=== PATIENT | male | born 1955 | race Caucasian/White ===

== ENCOUNTER 2017-04-27 12:26 | Inpatient (IN) ==
--- NOTE | 2017-04-26 16:17 | Discharge Summary ---
<Connie Murray E - Last Filed: 04/26/17 16:15> Date of Encounter: 04/26/17 - Discharge Diagnosis (1) Arthritis of left knee Priority: Primary Status: Chronic (2) Smoking Priority: Secondary Status: Chronic (3) History of DVT (deep vein thrombosis) Priority: Secondary Status: Chronic (4) BMI 37.0-37.9, adult Priority: Secondary Status: Chronic - Discharge Medications Prescriptions: HYDROcodone/Acet 5/325 mg [[place] 5-325 mg] 1 - 2 tab PO Q6H PRN #40 tab PRN Reason: Pain Home Medications: Aspirin Enteric Coated [Aspirin EC] 325 mg PO DAILY #21 tablet. 04/26/17 [Rx] Aspirin [Lo-Dose Aspirin EC] 81 mg PO DAILY 04/27/17 [History] HYDROcodone/Acet 5/325 mg [[place] 5-325 mg] 1 - 2 tab PO Q6H PRN #40 tab [Rx] Allergies/Adverse Reactions: Allergies No Known Allergies Allergy (Verified 04/27/17 13:43) Primary care physician: Herson Rivera MD - Patient Status Disposition: Home, Self-Care Condition: Good - Discharge Instructions Follow Up With: Herson Rivera MD [Primary Care Provider] - Peyman Enrique MD [Partnered Physician] - 05/07/17 3:00 pm Additional Instructions: Discharge Instructions: Total Knee Replacement Please call [facility] ([phone]), your Primary Care Physician, or report to the Emergency Room if you have any of the following symptoms: Nausea, vomiting, fever greater that 101.5, swelling, chest pain, shortness of breath, increased pain/redness/drainage/odor for your incision site, numbness/ tingling, or any other concerning symptoms. ACTIVITY:Weight-bearing as tolerated. You may progress off support (crutches or walker) as tolerated. MEDICATIONS: Upon discharge resume your home medications. Take all the medications as prescribed. Take a stool softener if taking narcotic pain medications. Stool softeners are only effective if you drink enough fluids. Drink 6-8 glass of water or fluids a day, unless this is not allowed for another health problem. Despite using stool softeners, if you haven't had a bowel movement in 3 days, please switch to a gentle laxative. Gentle laxatives are sold over the counter. You should have a bowel movement within 24 hours, if not call the office. You will be discharged from the hospital with a prescription for pain medication. You are encouraged to decrease the use of narcotic pain medication as tolerated. Should you require a refill, please call the office. [facility] prescribes narcotic pain medication for only 4-6 weeks after surgery. If you require pain medication beyond this time period, you may be referred to your Primary Care Physician or to the Pain Clinic for further evaluation. Plan ahead for refills on pain medication as many narcotics either need to be picked up at the office or mailed. It is best to call 48-72 hours in advance of needing a prescription refill so you don't run out of medication. To help control the post-operative pain, you may take NSAIDs (Aleve,Advil, Motrin, Ibuprofen, Naprosyn) or Tylenol as prescribed on the bottle in addition to the pain medication. ANTICOAGULATION (blood thinners): Continue your Aspirin, Lovenox or Coumadin as prescribed to help prevent a blood clot in the leg or in the lungs. As long as your incision remains dry and you tolerate the NSAIDs (Aleve, Advil, Motrin, ibuprofen, naprosyn), it is OK to use the NSAIDS while you are taking your anticoagulation medication. Should your incision start to drain, stop the NSAID and contact our office. Common symptoms of blood clot in the legs include: localized pain, swelling, calf tenderness, redness or discoloration of the skin. Blood clot in the lung symptoms include: shortness of breath, rapid pulse, sweating, and chest pain that worsens with deep breathing, coughing up blood, lightheadedness, feelings of anxiety. If you experience any of these symptoms notify your physician immediately, go to the emergency room, or if having trouble breathing, call 911. WOUND CARE: Leave the dressing on for 7 to 10days. You may change the dressing if it becomes saturated greater than 50%. Do not get the dressing wet at anytime. Wash your hands with antibacterial soap, rinse and dry prior to any wound care. If you have ned the visiting nurse or rehab facility can remove the stapes 10-14 days after surgery and place steri-strips across the wound. Leave the steri-strips in place until they fall off on their won. You may let water from the shower run on top of the steri-strips. If you do not have a visiting nurse or rehab facility, you will need to return to the office at 10-14 days for the ned to be removed. If you have itching or redness around the dressing call the office. FOLLOW-UP: Please follow up with your surgeon in the orthopedic clinic in 4 weeks from the day of surgery. If you have ned that need to be removed, you will need to come back to the office in 10-14 days from the day of surgery. - Hospital Course Hospital course: Mr. Castro is a 62 year old male - Time Spent with Patient Total time spent providing and/or coordinating discharge services: - VTE Documentation of Mechanical Device: Venous foot pump, device <Anabel Smallwood - Last Filed: 04/28/17 12:58> Date of Encounter: 04/28/17 Time of Encounter: 13:00 - Discharge Diagnosis (1) Status post total knee replacement, left Priority: Primary Status: Acute Labs on day of discharge: Labs from last 24 hours 04/28/17 04/28/17 04/27/17 05:18 05:18 16:23 Hgb 11.7 L D 14.0 Hct 34.4 L 40.4 Sodium 137 Potassium 4.6 H Chloride 107 Carbon Dioxide 25 BUN 12 Creatinine 0.85 Est GFR ( Amer) > 60 Est GFR (Non-Af Amer) > 60 BUN/Creatinine Ratio 14 Glucose 125 H Calculated Osmolality 285 Calcium 8.4 L - Impressions ITS Impressions Knee X-Ray 04/27/17 01:00 IMPRESSION: Total knee arthropasty without acute hardware complication. D/ / Skinny Song MD / Skinny Song MD Interpreting Provider: Skinny Song MD Date of admission: 04/27/17 17:41 Primary care physician: Herson Rivera MD Consults: 04/27/17 17:18 Consult to Occupational Therapy [CONS] Routine Comment: Evaluate, develop and implement POC Reason for Consult: post knee surgery Consult to Orthopedic Navigator [CONS] [CONS] Routine Consult to Physical Therapy [CONS] Routine Comment: Evaluate, develop and impliment POC Reason for Consult: post knee surgery Consult to Heat Curer [CONS] Routine Reason for SW Consult: post op joint replacement RT Post Op Consult [CONS] Routine - Hospital Course Hospital course: Mr. Castro is a 62 year old male - Time Spent with Patient Total time spent providing and/or coordinating discharge services: <Peyman Enrique - Last Filed: 04/29/17 09:50> Date of Encounter: 04/29/17 - Discharge Diagnosis (1) Arthritis of left knee Priority: Primary Status: Chronic (2) Smoking Priority: Secondary Status: Chronic (3) History of DVT (deep vein thrombosis) Priority: Secondary Status: Chronic (4) Acute blood loss anemia Priority: Primary Status: Acute (5) Status post total knee replacement, left Priority: Primary Status: Acute (6) Obesity (BMI 35.0-39.9 without comorbidity) Priority: Secondary Status: Chronic Primary care physician: Herson Rivera MD - Hospital Course Hospital course: Mr. Castro is a 62 year old male - Time Spent with Patient Total time spent providing and/or coordinating discharge services:
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
[2017-04-27] MEDS ORDERED: CeFAZolin Pre 2,000 MG/100 ML 2,000 MG/100 ML BAG IVPB ONE (12:48)
[2017-04-27] MEDS ORDERED: Albuterol 2.5 MG/3 ML NEBULIZER IH ONE (12:48)
[2017-04-27] MEDS ORDERED: Lidocaine -MPF 1% 2 ML VIAL ID ONE (12:48)
[2017-04-27] MEDS ORDERED: Ringers Solution, Lactated 1,000 ML IVC SCH ×2 (13:00→17:18)
--- NOTE | 2017-04-27 13:12 | History & Physical Report ---
Date of Encounter: 04/27/17 Time of Encounter: 13:11 24 Hour HP Update - Instructions Instructions: If the History and Physical is less than 30 days old and was completed prior to A.M. admission and or procedure and has NOT been updated on calendar day of procedure please complete this update prior to performing procedure. - Update Patient reports changes in Medical Condition: No Changes in examination, assessment, or condition: No Changes in Medication: No Preop tests/diagnostics Reviewed: Yes Surgery Remains Indicated: Yes Consent for Planned Operative Procedure(s) Verified: Yes - Pre-Operative Checklist Preoperative Checklist Indicated: No Prophylactic Antibiotic Ordered: Yes Is VTE Prophylaxis Indicated?: Yes
--- NOTE | 2017-04-27 13:20 | Anesthesia Evaluation PreOp ---
Date of Encounter: 04/27/17 Time of Encounter: 13:13 - Past History Planned Operation: Left Total Knee Arthroplasty Anesthesia History: Past Anesthesia Alcohol Use: heavy, recent Drug use: none Medications and Allergies Naproxen [EC-Naprosyn] 375 mg PO BID PRN 01/08/17 [History] Aspirin Enteric Coated [Aspirin EC] 325 mg PO DAILY #21 tablet. 04/26/17 [Rx] OxyCODONE Immed Rel [Roxicodone 5 MG] 5 - 10 mg PO Q6HR PRN #40 tablet 04/26/17 [Rx] Allergies No Known Allergies Allergy (Verified 01/08/17 10:44) - Meds/Allergy Pre-op Review Medications Reviewed: Yes Allergies Reviewed: Yes Beta Blockers on Current Med List: No Anesthesia Results - Labs Laboratory Tests 04/20/17 04/20/17 04/20/17 15:40 15:40 15:40 WBC 6.8 Hgb 16.5 Hct 48.0 Plt Count 170 PT 9.3 L INR 0.9 APTT 26.0 Sodium 141 Potassium 4.8 H BUN 6 L Creatinine 1.03 Anesthesia Exam O2 Sat Height 1.78 m Height 1.78 m Height 1.78 m Weight 119.748 kg Weight 119.748 kg Weight 119.748 kg O2 Sat by Pulse Oximetry 94 O2 Sat by Pulse Oximetry 94 Vital Signs Temp Pulse Resp BP Pulse Ox 99.3 F 87 18 129/88 94 04/27/17 12:45 04/27/17 12:45 04/27/17 12:45 04/27/17 12:45 04/27/17 12:45 Height: 5'10'' Weight: 264 lbs NPO (# of Hours): 8 Pain Scale: 0 Pain Scale Used: Numeric (1 - 10)
[2017-04-27] MEDS ORDERED: Acetaminophen IV 1,000 MG/100 ML INFUS..BTL IVPB ONE (13:25)
[2017-04-27] MEDS ORDERED: Gabapentin 300 MG CAPSULE PO STA (13:25)
[2017-04-27] MEDS ORDERED: *HR* FentaNYL (PF) 100 MCG/2 ML VIAL ONE (13:30)
[2017-04-27] MEDS ORDERED: Lidocaine -MPF 2% 2 ML VIAL ONE (13:30)
[2017-04-27] MEDS ORDERED: *HR* Propofol 200 MG/20 ML VIAL IVP ONE ×2 (13:30→13:36)
[2017-04-27] MEDS ORDERED: *HR* Midazolam HCl 2 MG/2 ML VIAL ONE (13:30)
[2017-04-27] MEDS ORDERED: *HR* Meperidine 25 MG/ML SYRINGE IVP PRN (13:47)
[2017-04-27] MEDS ORDERED: *HR* Promethazine 25 MG/ML VIAL IVP PRN (13:47)
[2017-04-27] MEDS ORDERED: ROPIVACAINE HCL/PF 0.5% 30 ML VIAL ONE (14:20)
[2017-04-27] MEDS ORDERED: Bupivacaine/Clonidine Syringe 1 EACH SYRINGE ONE (14:21)
[2017-04-27] MEDS ORDERED: EPHEDrine 50 MG/ML VIAL ONE (15:02)
[2017-04-27] MEDS ORDERED: *HR* HYDROmorphone 2 MG/ML SYRINGE ONE (15:14)
--- NOTE | 2017-04-27 15:15 | Anesthesia Procedures ---
Date of Encounter: 04/27/17 Time of Encounter: 14:30 Procedures: Anesthesia - Nerve Block Procedure Date: 04/27/17 Time: 14:30 Checklist: Correct Patient Identifier, Correct procedure, History checked Correct side: Left Blood Thinner: No Monitor Applied: EKG, BP, Pulse Oximetry Supplemental Oxygen via Nasal Cannula (L/min): 2 Sedation: Versed (mg): 2 Sedation: Fentanyl (mcg): 100 Indication: Post Op Analgesia Pre-op Neuro Deficits: No Block Type: Femoral, Other (iPACK) Catheter placed: No Sterile Technique: Yes Ultrasound used: Yes Anatomy identified: Yes Visual spread of Local: Yes Neuro Stimulation: Yes Nerve Stimulator Range: 0.2 - 0.4 mA Blood on Needle Aspiration: No Smooth Injection of Local: Yes Pain with Injection of Local: No Prep: Chlorhexadine Needle: 22 x 50 mm Stimuplex, 21 x 100 mm Stimuplex Local: 0.25% Bupivicaine w/Clonidine 20 mcg/cc (iPack), Ropivacaine (0.5% with 8 of decardon) Volume (cc): 60 Number of Attempts: 1 Complications: None/effective block Vitals: vss
--- NOTE | 2017-04-27 15:35 | Orthopedic Operative Note ---
Date of procedure: 04/27/17 Pre-op diagnosis: Left knee arthritis Post-op diagnosis: same Procedure: Procedure: Left Total knee replacement Estimated blood loss: 200 cc Hardware: Metal and polyethylene replacement. Arthrex Femur: 8 Tibia: 8 PS insert: 12 Patella: 40 Exam Under anesthesia: Severe varus alignment loss of full extension 20 degrees flexion and 90 degrees Procedural Notes: Grade 4 arthritic changes medial compartment and patellofemoral joint. Operative procedure: The patient was brought to the operating room and placed on the operating room table. After general anesthesia was administered the operative knee was examined. Findings were noted in the exam under anesthesia. The operative extremity was prepped and draped in sterile surgical fashion. The patient received IV antibiotics prior to skin incision. A standard midline incision was made centered over the patella. The incision was made through the skin and subcutaneous tissue. A medial parapatellar tendon approach was performed. Care was taken to preserve tissue along the medial aspect of the patella. And to protect the patella tendon. The deep MCL was released off the medial tibia. The infra patella fat pad was excised. Knee was brought into flexion. Patient noted to have grade 4 arthritic changes medial compartment and patellofemoral joint. The entry hole was made for the intramedullary femoral guide. The guide was seated in 6 degrees of valgus. Anterior cut was made followed by the distal cut. The ACL the PCL the medial and the lateral menisci were excised. The tibia was subluxed forward. The entry hole was made for the intramedullary tibial guide. Guide was seated to resect 2 mm off the more abnormal side. The knee was brought into flexion the distal femur was sized to an 8. The femoral guide was seated, the anterior cut was made followed by the posterior condylar cut, followed by the chamfer cuts. The finishing guide was seated the box cut was made and the lug holes were drilled. The tibia was sized, to an 8 the tibial tray was seated and prepared with the large drill followed by the fin cutter. Trial reduction revealed full extension no varus valgus instability with the appropriate 12 PS Gita. The patella was everted and cut was made at the level of the insertion of the quadriceps and patella tendon. The patella was sized to a 40 the guide was seated and the lug holes are drilled. Trial reduction revealed excellent patella tracking. All trial components were removed all bony surfaces were irrigated. The tibia was cemented first followed by the femur. The 12 PS Gita was seated and the knee was brought into full extension. The patella was cemented and held in place with the patellar holding clamp. After the cement had hardened, the knee sat for 2 minutes with a Betadine saline solution. The knee was then irrigated out with 2 L of pulse irrigation. The PA close the knee. The extensor mechanism was closed with #2 FiberWire suture and #2 PDS suture. The subcutaneous tissue was then irrigated and closed deep with #1 PDS suture superficially with 0 PDS suture and skin was closed with skin ned. The patient was then placed in a sterile dressing and a postoperative brace extubated and transferred to recovery room in stable condition. Anesthesia: BOOGIE Surgeon: Peyman Enrique Mason Tender Restoration Labor: Anabel Smallwood Disposition: PACU
[2017-04-27] MEDS ORDERED: Ketorolac 30 MG/ML VIAL ONE (15:42)
[2017-04-27] MEDS ORDERED: Ondansetron 4 MG/2 ML VIAL ONE (15:43)
[2017-04-27] MEDS ORDERED: Dexamethasone 4 MG/ML VIAL ONE (15:44)
[2017-04-27] MEDS: *HR* HYDROmorphone (PF) 1 MG/ML SYRINGE IVP PRN ×4 (16:13→16:38)
[2017-04-27 16:49] LABS: Hematocrit 40.4 % (37.5-50.1)
--- NOTE | 2017-04-27 16:59 | Anesthesia Evaluation Post Op ---
Date of Encounter: 04/27/17 Time of Encounter: 16:58 - Vital Signs Vital Signs: vss - Lungs Lungs: Clear Ascult./Percussion - Airway Airway: Non-obstructed (continous pulse ox ordered.) - Cardiovascular Baseline Rhythm - Mental Status Mental Status: Asleep with brisk response to light stimulation - Pain Pain Scale used: Tom-Castro (Faces) (no apparent distress noted.) - Nausea Vomiting Nausea Vomiting: Not Present - Hydration Hydration: Ice chips - Discharge PostOp Status: Transfer Patient to floor
[2017-04-27] MEDS ORDERED: ceFAZolin 3,000 MG in D5% in Water 100 ML IVPB SCH (17:18)
[2017-04-27] MEDS ORDERED: Naloxone 0.4 MG/ML INJ IVP PRN (17:18)
[2017-04-27] MEDS ORDERED: *HR* OxyCODONE Immed Rel 5 MG TABLET PO PRN (17:18)
[2017-04-27] MEDS ORDERED: Ondansetron 4 MG/2 ML VIAL IVP PRN (17:18)
[2017-04-27] MEDS ORDERED: Temazepam 15 MG CAPSULE PO PRN (17:18)
[2017-04-27] MEDS ORDERED: MOM Conc 10 ML UD.LIQ PO PRN (17:18)
[2017-04-27] MEDS ORDERED: Sennosides 8.6 MG TABLET PO PRN (17:18)
[2017-04-27] MEDS ORDERED: *HR* Enoxaparin 30 MG/0.3 ML SYRINGE SQ SCH (18:00)
[2017-04-27] MEDS: *HR* Enoxaparin 30 MG/0.3 ML SYRINGE SQ SCH (18:49)
[2017-04-27] MEDS: *HR* OxyCODONE Immed Rel 5 MG TABLET PO PRN (21:37)
[2017-04-27] MEDS: ceFAZolin 3,000 MG in D5% in Water 100 ML IVPB SCH (21:38)
[2017-04-28] MEDS: *HR* OxyCODONE Immed Rel 5 MG TABLET PO PRN ×2 (04:43→09:12)
[2017-04-28 05:43] LABS: Hematocrit 34.4 % (37.5-50.1)
[2017-04-28 05:49] LABS: BUN/Creatinine Ratio 14 (6-26); Blood Urea Nitrogen 12 mg/dL (8-26); Calcium 8.4 mg/dL (8.6-10.8); Carbon Dioxide 25 mEq/L (19-29); Chloride 107 mEq/L (98-109); Glucose 125 mg/dL (70-99); Osmolality,Calculated 285 (280-300); Potassium 4.6 mEq/L (3.5-4.5); Sodium 137 mEq/L (136-145); eGFR For African Americans > 60 (> 60); eGFR For Non-African Americans > 60 (> 60)
[2017-04-28 05:52] LABS: Hemoglobin 11.7 g/dL (12.9-16.9)
[2017-04-28] MEDS: ceFAZolin 3,000 MG in D5% in Water 100 ML IVPB SCH (06:01)
[2017-04-28] MEDS: *HR* Enoxaparin 30 MG/0.3 ML SYRINGE SQ SCH ×2 (06:22→17:41)
--- NOTE | 2017-04-28 06:47 | Orthopedics Progress Note ---
Date of Encounter: 04/28/17 Time of Encounter: 06:47 - Assessment and Plan (1) Arthritis of left knee Current Visit: Yes Status: Chronic (2) Smoking Current Visit: Yes Status: Chronic (3) History of DVT (deep vein thrombosis) Current Visit: Yes Status: Chronic (4) BMI 37.0-37.9, adult Current Visit: Yes Status: Chronic Subjective Interval history: Patient was seen this morning doing well without complaints. Afebrile vital signs stable. Operative extremity: Neurovascularly intact Dressing clean dry and intact Calves nontender Assessment and plan: Continue with postoperative care Hematocrit 34 Objective Vital signs: Vital Signs Temp Pulse Resp BP Pulse Ox 04/28/17 04:44 98.7 F 68 17 106/71 94 04/28/17 00:45 98.7 F 92 17 108/68 92 04/27/17 18:47 97.4 F L 99 16 101/74 93 04/27/17 17:54 98.4 F 99 16 119/84 93 04/27/17 17:15 98.3 F 80 16 123/85 97 04/27/17 16:55 97.3 F L 74 18 123/98 100 04/27/17 16:44 80 16 120/85 98 04/27/17 16:35 98.0 F 70 18 117/88 94 04/27/17 16:25 75 20 102/80 94 04/27/17 16:15 67 18 126/85 98 04/27/17 16:05 97.8 F 83 18 123/87 92 04/27/17 14:35 65 18 102/74 98 04/27/17 14:22 67 18 126/82 97 04/27/17 13:01 18 94 04/27/17 12:45 99.3 F 87 18 129/88 94 Intake and Output 04/27/17 04/27/17 04/28/17 15:59 23:59 07:59 Intake Total 100 / 100 Output Total 200 / 200 250 / 250 Balance -200 / -200 100 / 100 -250 / -250 Intake: IV Fluids 100 / 100 Ancef 3,000 MG In 100 / 100 Dextrose 5% 100 ML @ 200 mls/hr IVPB Q8H [facility] Rx#: [id number] Output: Urine 0 / 0 250 / 250 Estimated Blood Loss 200 / 200 Other: Weight 119.748 kg 121.7 kg Patient Weight 04/28/17 23:59 Weight 121.7 kg - Labs CBC & BMP: 04/28/17 05:18 04/28/17 05:18 Labs: Abnormal lab results Hgb 11.7 g/dL (12.9-16.9) L D 04/28/17 05:18 Hct 34.4 % (37.5-50.1) L 04/28/17 05:18 Potassium 4.6 mEq/L (3.5-4.5) H 04/28/17 05:18 Glucose 125 mg/dL (70-99) H 04/28/17 05:18 Calcium 8.4 mg/dL (8.6-10.8) L 04/28/17 05:18 - VTE Documentation of Mechanical Device: Venous foot pump, device Consult Discharge Plan - Plan Referrals: Herson Rivera MD [Primary Care Provider] -
--- NOTE | 2017-04-28 08:24 | Electrocardiograph Report ---
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
[2017-04-28] MEDS ORDERED: Aspirin Enteric Coated 81 MG Tablet PO SCH (09:00)
[2017-04-28] MEDS: *HR* HYDROcodone/Acet 10/325 mg TABLET PO PRN ×3 (10:20→22:07)
[2017-04-28] MEDS: *HR* HYDROmorphone (PF) 1 MG/ML SYRINGE IVP PRN ×3 (12:28→21:09)
--- NOTE | 2017-04-28 12:58 | Event Note ---
Date of Encounter: 04/28/17 Time of Encounter: 12:56 PCR - POD#1 Patient seen at bedside, doing well. Pain not controlled with OXycodone. All questions and concerns addressed. Patient educated on post-operative restrictions and care. Addressed: CHANGING OXYCODONE TO [place] 10/325 Q 4 HOURS. ADDING TORADOL 15MG Q 6 HOURS. WILL PRINT RX FOR HYDROCODONE D/C plan: Home tomorrow with outpatient PT.
[2017-04-29] MEDS: *HR* HYDROmorphone (PF) 1 MG/ML SYRINGE IVP PRN ×2 (00:07→06:15)
[2017-04-29] MEDS: *HR* HYDROcodone/Acet 10/325 mg TABLET PO PRN (03:47)
[2017-04-29 05:25] LABS: Hematocrit 29.7 % (37.5-50.1); Hemoglobin 10.4 g/dL (12.9-16.9)
[2017-04-29 05:37] LABS: BUN/Creatinine Ratio 11 (6-26); Blood Urea Nitrogen 9 mg/dL (8-26); Calcium 8.1 mg/dL (8.6-10.8); Carbon Dioxide 22 mEq/L (19-29); Chloride 107 mEq/L (98-109); Glucose 101 mg/dL (70-99); Osmolality,Calculated 279 (280-300); Potassium 3.8 mEq/L (3.5-4.5); Sodium 135 mEq/L (136-145); eGFR For African Americans > 60 (> 60); eGFR For Non-African Americans > 60 (> 60)
[2017-04-29] MEDS: *HR* Enoxaparin 30 MG/0.3 ML SYRINGE SQ SCH (06:15)
--- NOTE | 2017-04-29 09:51 | Orthopedics Progress Note ---
Date of Encounter: 04/29/17 Time of Encounter: 09:50 - Assessment and Plan (1) Arthritis of left knee Current Visit: Yes Status: Chronic (2) Smoking Current Visit: Yes Status: Chronic (3) History of DVT (deep vein thrombosis) Current Visit: Yes Status: Chronic (4) Acute blood loss anemia Current Visit: Yes Status: Acute (5) Status post total knee replacement, left Current Visit: Yes Status: Acute (6) Obesity (BMI 35.0-39.9 without comorbidity) Current Visit: Yes Status: Chronic Subjective Interval history: Patient was seen this morning doing well without complaints. Afebrile vital signs stable. Operative extremity: Neurovascularly intact Dressing clean dry and intact Calves nontender Assessment and plan: Continue with postoperative care Asymptomatic acute blood loss anemia. Objective Vital signs: Vital Signs Temp Pulse Resp BP Pulse Ox 04/29/17 06:47 98.8 F 75 18 114/76 93 04/29/17 04:31 98.7 F 70 16 102/64 94 04/29/17 00:33 99.1 F 79 17 97/59 97 04/28/17 21:31 99.7 F H 77 17 119/80 98 04/28/17 14:53 98.0 F 73 18 112/76 98 04/28/17 11:11 98.1 F 65 20 105/70 97 Intake and Output 04/28/17 04/29/17 04/29/17 23:59 07:59 15:59 Intake Total 60 / 60 600 / 600 Output Total 250 / 250 1550 / 1550 Balance -190 / -190 -1550 / -1550 600 / 600 Intake: Oral 60 / 60 600 / 600 Output: Urine 250 / 250 1550 / 1550 Other: Meal Breakfast Percent of Meal Consumed 100% # Bowel Movements 0 Weight 122.1 kg Patient Weight 04/29/17 23:59 Weight 122.1 kg - Labs CBC & BMP: 04/29/17 04:44 04/29/17 04:44 Labs: Abnormal lab results Hgb 10.4 g/dL (12.9-16.9) L 04/29/17 04:44 Hct 29.7 % (37.5-50.1) L 04/29/17 04:44 Sodium 135 mEq/L (136-145) L 04/29/17 04:44 Glucose 101 mg/dL (70-99) H 04/29/17 04:44 Calculated Osmolality 279 (280-300) L 04/29/17 04:44 Calcium 8.1 mg/dL (8.6-10.8) L 04/29/17 04:44 - VTE Documentation of Mechanical Device: Venous foot pump, device Consult Discharge Plan - Plan Additional Instructions: Discharge Instructions: Total Knee Replacement Please call [facility] ([phone]), your Primary Care Physician, or report to the Emergency Room if you have any of the following symptoms: Nausea, vomiting, fever greater that 101.5, swelling, chest pain, shortness of breath, increased pain/redness/drainage/odor for your incision site, numbness/ tingling, or any other concerning symptoms. ACTIVITY:Weight-bearing as tolerated. You may progress off support (crutches or walker) as tolerated. MEDICATIONS: Upon discharge resume your home medications. Take all the medications as prescribed. Take a stool softener if taking narcotic pain medications. Stool softeners are only effective if you drink enough fluids. Drink 6-8 glass of water or fluids a day, unless this is not allowed for another health problem. Despite using stool softeners, if you haven't had a bowel movement in 3 days, please switch to a gentle laxative. Gentle laxatives are sold over the counter. You should have a bowel movement within 24 hours, if not call the office. You will be discharged from the hospital with a prescription for pain medication. You are encouraged to decrease the use of narcotic pain medication as tolerated. Should you require a refill, please call the office. [facility] prescribes narcotic pain medication for only 4-6 weeks after surgery. If you require pain medication beyond this time period, you may be referred to your Primary Care Physician or to the Pain Clinic for further evaluation. Plan ahead for refills on pain medication as many narcotics either need to be picked up at the office or mailed. It is best to call 48-72 hours in advance of needing a prescription refill so you don't run out of medication. To help control the post-operative pain, you may take NSAIDs (Aleve,Advil, Motrin, Ibuprofen, Naprosyn) or Tylenol as prescribed on the bottle in addition to the pain medication. ANTICOAGULATION (blood thinners): Continue your Aspirin, Lovenox or Coumadin as prescribed to help prevent a blood clot in the leg or in the lungs. As long as your incision remains dry and you tolerate the NSAIDs (Aleve, Advil, Motrin, ibuprofen, naprosyn), it is OK to use the NSAIDS while you are taking your anticoagulation medication. Should your incision start to drain, stop the NSAID and contact our office. Common symptoms of blood clot in the legs include: localized pain, swelling, calf tenderness, redness or discoloration of the skin. Blood clot in the lung symptoms include: shortness of breath, rapid pulse, sweating, and chest pain that worsens with deep breathing, coughing up blood, lightheadedness, feelings of anxiety. If you experience any of these symptoms notify your physician immediately, go to the emergency room, or if having trouble breathing, call 911. WOUND CARE: Leave the dressing on for 7 to 10days. You may change the dressing if it becomes saturated greater than 50%. Do not get the dressing wet at anytime. Wash your hands with antibacterial soap, rinse and dry prior to any wound care. If you have ned the visiting nurse or rehab facility can remove the stapes 10-14 days after surgery and place steri-strips across the wound. Leave the steri-strips in place until they fall off on their won. You may let water from the shower run on top of the steri-strips. If you do not have a visiting nurse or rehab facility, you will need to return to the office at 10-14 days for the ned to be removed. If you have itching or redness around the dressing call the office. FOLLOW-UP: Please follow up with your surgeon in the orthopedic clinic in 4 weeks from the day of surgery. If you have ned that need to be removed, you will need to come back to the office in 10-14 days from the day of surgery. Referrals: Herson Rivera MD [Primary Care Provider] - Peyman Enrique MD [Partnered Physician] - 05/07/17 3:00 pm Prescriptions: HYDROcodone/Acet 5/325 mg [[place] 5-325 mg] 1 - 2 tab PO Q6H PRN #40 tab PRN Reason: Pain
[2017-04-29 10:53] VITALS: BP 126/77
== END 2017-04-29 11:25 | disposition home or self-care (01) | DRG 302 ==
LOC: SAMDAY 12:26 → 3NENU 17:41
PROVIDERS: ADMIT Orthopaedic Surgery; ATTEND Orthopaedic Surgery

== ENCOUNTER 2020-11-16 10:38 | Observation (INO) ==
[2020-11-16] MEDS ORDERED: *HR* Heparin 5,000 UNIT/ML VIAL IVP ONE (11:56)
[2020-11-16] MEDS ORDERED: *HR* Heparin 5,000 UNIT/ML VIAL IVP PRN ×2 (11:56)
[2020-11-16] MEDS ORDERED: Heparin 25,000UNIT/250ML 1/2NS 25,000 UNIT/250 ML IV.SOLN IVC SCH (12:00)
[2020-11-16 12:34] LABS: Basophils # 0.1 K/mcL (0.0-0.2); Basophils % 1.5 %; Eosinophils # 0.1 K/mcL (0.0-0.6); Eosinophils % 1.2 %; Hematocrit 52.9 % (37.5-50.1); Hemoglobin 18.9 g/dL (12.9-16.9); Immature Granulocytes % 0.2 % (0-4); Lymphocytes # 2.3 K/mcL (0.6-4.6); Lymphocytes % 38.1 %; Mean Corpuscular HGB Conc 35.7 g/dL (31.6-35.5); Mean Corpuscular Hemoglobin 42.1 pg (28.0-33.3); Mean Corpuscular Volume 117.8 fL (83.0-100.0); Mean Platelet Volume 10.5 fL (9.4-12.4); Monocytes # 0.5 K/mcL (0.0-1.3); Monocytes % 8.7 %; Neutrophils # 3.1 K/mcL (1.6-8.9); Platelet Count 167 K/mcL (140-400); Red Blood Count 4.49 M/mcL (4.19-5.50); Segmented Neutrophils % 50.3 %; White Blood Count 6.1 K/mcL (4.3-11.1)
[2020-11-16 12:39] LABS: Heparin anti-factor XA UFH < 0.04 IU/mL (0.30-0.70); INR 0.9; Prothrombin Time 10.1 Seconds (9.4-12.1)
[2020-11-16 13:02] LABS: BUN/Creatinine Ratio 9 (6-26); Blood Urea Nitrogen 8 mg/dL (8-23); Calcium 9.4 mg/dL (8.6-10.3); Carbon Dioxide 21 mEq/L (23-29); Chloride 101 mEq/L (98-107); Glucose 88 mg/dL (70-105); Macrocytosis Present (Not Present); Osmolality,Calculated 288 (280-300); Platelet Estimate Normal (Normal); Potassium 3.5 mEq/L (3.5-5.1); Sodium 140 mEq/L (136-145); eGFR For African Americans > 60 (> 60); eGFR For Non-African Americans > 60 (> 60)
[2020-11-16] MEDS ORDERED: Mag Hydrox/Al Hydrox/Simeth 30 ML UDC PO PRN (15:32)
[2020-11-16] MEDS ORDERED: Ondansetron ODT 4 MG TAB.RAPDIS SL PRN (15:32)
[2020-11-16] MEDS ORDERED: MOM Conc 10 ML UD.LIQ PO PRN (15:32)
[2020-11-16] MEDS ORDERED: Naloxone 0.4 MG/ML INJ IVP PRN (15:32)
[2020-11-16] MEDS ORDERED: Isovue-370 500 ML BOTTLE IVP ONE ×2 (15:40→15:41)
[2020-11-16] MEDS ORDERED: Apixaban 5 MG TABLET PO SCH (17:00)
[2020-11-16 17:07] VITALS: BP 130/75
== END 2020-11-16 18:20 | disposition home or self-care (01) ==
LOC: EMEROOARM 10:38 → 3BNU 10:38
PROVIDERS: ADMIT Internal Medicine; ATTEND Internal Medicine